=== PATIENT | male | born 1990 | race African-American/Black ===

== ENCOUNTER 2019-12-29 15:47 | Emergency (ER) | payer MEDICAID ==
[~2019-12-29] VITALS: Ht 188 cm; Wt 105.0 kg
[2019-12-29] MEDS ORDERED: SODIUM CHLORIDE 0.9% 1,000 ML IV ONE (17:07)
[2019-12-29 17:29] LABS: BASOPHILS % 0.6 % (0.0-2.0); EOSINOPHILS % 1.4 % (0.0-5.0); HEMATOCRIT. 44.8 % (42.0-52.0); HEMOGLOBIN. 14.7 g/dL (14.0-18.0); LYMPHOCYTES % 30.6 % (20.0-50.0); MEAN CORPUSCULAR HEMOGLOBIN 27.3 pg (28.0-32.0); MEAN CORPUSCULAR VOLUME 83.3 fL (80.0-94.0); MEAN PLATELET VOLUME 8.7 fl (7.4-10.4); MONOCYTES % 7.1 % (2.0-8.0); NEUTROPHILS % 60.3 % (40.0-76.0); PLATELET 188 x1000/uL (130-400); RED BLOOD CELL COUNT 5.39 mill/uL (4.7-6.1); RED CELL DISTRIBUTION WIDTH 12.5 % (11.6-14.6)
[2019-12-29 17:34] LABS: CHLORIDE 110 mEq/L (98-107)
[2019-12-29 19:27] VITALS: BP 120/77
== END 2019-12-29 19:27 | disposition home or self-care (01) ==
LOC: ER 15:47
DX: R42 Dizziness and giddiness (principal)
CPT/HCPCS: 36415; 80053; 82962; 83880; 84484; 85025; 93005; 96360; 99284; J7030

== ENCOUNTER 2022-04-20 11:33 | Emergency (ER) | payer MEDICAID, OTHER ==
[~2022-04-20] VITALS: Ht 175.3 cm; Wt 101.0 kg
[2022-04-20 12:15] LABS: BASOPHILS % 0.4 % (0.0-2.0); EOSINOPHILS % 1.3 % (0.0-5.0); HEMATOCRIT. 42.5 % (42.0-52.0); HEMOGLOBIN. 14.2 g/dL (14.0-18.0); LYMPHOCYTES % 27.7 % (20.0-50.0); MEAN CORPUSCULAR HEMOGLOBIN 27.9 pg (28.0-32.0); MEAN CORPUSCULAR VOLUME 83.4 fL (80.0-94.0); MEAN PLATELET VOLUME 8.9 fl (7.4-10.4); MONOCYTES % 7.1 % (2.0-8.0); NEUTROPHILS % 63.5 % (40.0-76.0); PLATELET 183 x1000/uL (130-400); RED CELL DISTRIBUTION WIDTH 12.8 % (11.6-14.6)
[2022-04-20 12:22] LABS: CHLORIDE 105 mEq/L (98-107)
[2022-04-20 12:31] LABS: ETHANOL BLOOD < 10 mg/dL
[2022-04-20 13:05] LABS: *AMPHETAMINES SCREEN URINE NEGATIVE (NEGATIVE); *BARBITURATES SCREEN URINE NEGATIVE (NEGATIVE); *BENZODIAZEPINES SCREEN URINE NEGATIVE (NEGATIVE); *COCAINE SCREEN URINE NEGATIVE (NEGATIVE); CANNABINOID URINE SCREEN NEGATIVE (NEGATIVE); METHADONE URINE SCREEN NEGATIVE (NEGATIVE); OPIATES URINE SCREEN NEGATIVE (NEGATIVE); PHENCYCLIDINE URINE SCREEN NEGATIVE (NEGATIVE)
[2022-04-20 14:00] VITALS: BP 158/82
[2022-04-20] MEDS ORDERED: MECLIZINE 25MG TABLET PO SCH (14:00)
[2022-04-20] MEDS ORDERED: ONDANSETRON HCL 4MG/2ML INJ IV SCH (14:00)
[2022-04-20] MEDS ORDERED: MECL-159 MT (16:28)
[2022-04-20] MEDS ORDERED: ONDA4TAB11 PO (16:28)
== END 2022-04-20 16:45 | disposition home or self-care (01) ==
LOC: ER 11:33
DX: R42 Dizziness and giddiness (principal); I48.91 Unspecified atrial fibrillation
CPT/HCPCS: 36415; 70450; 71045; 80053; 80305; 80320; 84484; 85025; 93005; 96374; 99285; J2405; J8597; G0480